=== PATIENT | female | born 1985 | race Caucasian/White ===

== ENCOUNTER → 2019-09-01 | Outpatient (CLI) | payer OTHER ==
--- NOTE | 2019-09-01 15:20 | Diagnostic Imaging Report ---
INDICATION: Left hand and wrist numbness. TIME OF EXAM: 03:08 p.m. FINDINGS: Three views of the left wrist were obtained. The distal radius and ulna are intact. Carpus appears intact. Metacarpals are unremarkable. No fractures are seen. IMPRESSION: No acute bony abnormality is detected. Dictated by: Dictated on workstation # [id number]
--- NOTE | 2019-09-01 15:38 | Diagnostic Imaging Report ---
EXAMINATION: Left hand radiographs, 3 views. COMPARISON: None. HISTORY: 34-year-old female, left hand and wrist numbness for 3 days. FINDINGS: There is no acute fracture. There is no radiopaque foreign body. Bone mineralization and alignment are unremarkable. The joint spaces are well-preserved. There is no bone erosion. There is no radiographically visible soft tissue mass. IMPRESSION: Unremarkable radiographs of the left hand. Dictated by: Dictated on workstation # [id number]
== END ==
LOC: RAD FS 15:01
PROVIDERS: ATTEND Nurse Practitioner
DX: R20.0 Anesthesia of skin (principal)
CPT/HCPCS: 73110; 73130